=== PATIENT | male | born 1990 | race Caucasian/White ===

== ENCOUNTER 2017-05-17 17:25 | Emergency (ER) | END 2017-05-17 18:54 | disposition home or self-care (01) ==

== ENCOUNTER 2017-07-31 12:49 | Emergency (ER) | END 2017-07-31 15:22 | disposition home or self-care (01) ==

== ENCOUNTER 2017-11-08 12:35 | Emergency (ER) | END 2017-11-08 13:12 | disposition home or self-care (01) ==

== ENCOUNTER 2018-03-05 09:59 | Emergency (ER) | payer OTHER ==
[~2018-03-05] VITALS: Wt 100.2 kg
[~2018-03-05 09:59] MED LIST: ALBU8.5H5 INH; CEPH-443 PO; CYCL10TA7 PO; HYDR-4011 PO; METH750T93 PO; NAPR-688 PO; NAPR-985 PO
[2018-03-05 10:03] VITALS: BP 139/82; PULSE 78; RESP 18
[2018-03-05] MEDS ORDERED: KETOROLAC 30 MG INJ IM STA (10:56)
[2018-03-05] MEDS ORDERED: DEXAMETHASONE 10 MG/ML 1 ML INJ IM ONE (11:00)
[2018-03-05] MEDS ORDERED: METHOCARBAMOL 750 MG TAB PO ONE (11:00)
[2018-03-05] MEDS ORDERED: HYDR-4011 PO (11:53)
[2018-03-05] MEDS ORDERED: CYCL10TA7 PO (11:53)
[2018-03-05] MEDS ORDERED: IBUP-1542 PO (11:53)
--- NOTE | 2018-03-05 11:54 | ERD ---
ER Documentation Chief Complaint Chief Complaint LOWER BACK PAIN X 1 day HPI 27-year-old male presents for low back pain and right shoulder pain times 1 day. He was playing soccer yesterday and landed on his back. He does have history of heavy lifting. He states that he had pain in a couple months ago. pain is 10 out of 10. He took Naprosyn at home without relief. No history of cancer, no history of recent infection, no history of back procedure. Denies fevers. Denies shortness of breath, abdominal pain, chest pain. ROS All systems reviewed and are negative except as per history of present illness. Medications Home Meds Active Scripts Ibuprofen* (Motrin*) 600 Mg Tab, 600 MG PO Q6H PRN for PAIN AND OR ELEVATED TEMP, #30 TAB Prov:SALLIE HONG DO 03/05/18 Cyclobenzaprine Hcl* (Cyclobenzaprine Hcl*) 10 Mg Tablet, 10 MG PO TID, #30 TAB Prov:SALLIE HONG DO 03/05/18 Hydrocodone/Acetaminophen ([place] 5-325 Tablet) 1 Each Tablet, 1 TAB PO Q6H PRN for PAIN, #10 TAB Prov:SALLIE HONG DO 03/05/18 Cyclobenzaprine Hcl* (Cyclobenzaprine Hcl*) 10 Mg Tablet, 10 MG PO TID, #30 TAB Prov:KIMBERLY JANG PA-C 11/08/17 Naproxen* (Naprosyn*) 500 Mg Tablet, 500 MG PO BID PRN for PAIN AND/OR INFLAMMATION, #30 TAB Prov:KIMBERLY JANG PA-C 11/08/17 Naproxen* (Naprosyn*) 500 Mg Tablet, 500 MG PO BID PRN for PAIN AND/OR INFLAMMATION, #30 TAB Prov:OPAL BARRIGA PA-C 07/31/17 Hydrocodone/Acetaminophen ([place] 5-325 Tablet) 1 Each Tablet, 1 TAB PO Q6H PRN for PAIN, #7 TAB Prov:OPAL BARRIGA PA-C 07/31/17 Cyclobenzaprine Hcl* (Cyclobenzaprine Hcl*) 10 Mg Tablet, 10 MG PO TID, #15 TAB Prov:OPAL BARRIGA PA-C 07/31/17 Hydrocodone/Acetaminophen ([place] 5-325 Tablet) 1 Each Tablet, 1 EACH PO QHS for SEVERE PAIN LEVEL 7-10, #10 TAB Prov:RICK BAÑUELOS DO 05/17/17 Methocarbamol* (Robaxin*) 750 Mg Tablet, 750 MG PO Q6H PRN for MUSCLE SPASMS, #20 TAB Prov:RICK BAÑUELOS DO 05/17/17 Naproxen* (Naproxen*) 500 Mg Tablet, 500 MG PO BID PRN for archana, #20 TAB Prov:RIKC BAÑUELOS DO 05/17/17 Cephalexin* (Keflex*) 500 Mg Capsule, 500 MG PO QID, #20 CAP Prov:RUFINA KING 05/08/15 Albuterol Sulfate* (Albuterol Sulfate* HFA) 8.5 Gm Hfa.aer.ad, 2 PUFF INH Q4H PRN for WHEEZING AND SOB, #1 INHALER Prov:ANALI BARBOUR NP 02/07/15 Allergies Allergies: Coded Allergies: No Known Allergies (Unverified Allergy, Unknown, 05/17/17) PMhx/Soc History of Surgery: No Anesthesia Reaction: No Hx Neurological Disorder: No Hx Respiratory Disorders: Yes (ASTHMA) Hx Cardiac Disorders: No Hx Psychiatric Problems: No Hx Miscellaneous Medical Probl: No Hx Alcohol Use: No (occasional) Hx Substance Use: No Hx Tobacco Use: No Physical Exam Vitals Temperature 98, pulse 78, respiration 18, blood pressure 139/82 Physical Exam Const: No acute distress Resp: Clear to auscultation bilaterally Cardio: Regular rate and rhythm, no murmurs, bilateral radial and dorsalis pedis pulses intact Abd: Soft, non tender, non distended. Normal bowel sounds Skin: No petechiae or rashes Back: There is low back paravertebral muscle tenderness to palpation lumbar spine Ext: Right shoulder tenderness noted diffusely, decreased range of motion, muscle strength 5 out of 5 upper and lower extremity Neur: Awake and alert, bilateral upper and lower extremity sensation intact Psych: Normal Mood and Affect Results 24 hrs Current Medications Medications Dose Sig/Agustín Start Time Status Last (Trade) Ordered Route PRN Stop Time Admin Dose Reason Admin Ketorolac 30 mg ONCE STAT 03/05/18 DC 03/05/18 Tromethamine IM 10:56 11:36 (Toradol) 03/05/18 10:57 10 mg ONCE ONCE 03/05/18 DC 03/05/18 Dexamethasone IM 11:00 11:36 (Decadron) 03/05/18 11:01 750 mg ONCE ONCE 03/05/18 DC 03/05/18 Methocarbamol PO 11:00 11:35 (Robaxin) 03/05/18 11:01 Procedures/MDM Medical Decision Making: Differential diagnosis includes but not limited to muscle strain, ligamentous sprain, epidural abscess, osteomyelitis, osteoarthritis, herniated disc, compression fracture, aortic aneurysm, kidney stone, pyelonephritis, pancreatitis. Patient appeared well on physical examination. Nontoxic appearing. Imaging: Lumbar spine x-ray is unremarkable Right shoulder x-ray unremarkable Patient likely has muscle strain ED course: Patient was given Robaxin, Motrin, Decadron. Symptoms improved with treatment. Prescription(s): Patient given prescription for [place], Motrin, muscle relaxer. Patient advised to follow up with PCP in 1-2 days. Patient advised to return to ED for new or worsening symptoms. Patient stable on discharge from the ED. Disclaimer: Inadvertent spelling and grammatical errors are likely due to EHR/dictation software use and do not reflect on the overall quality of patient care. Also, please note that the electronic time recorded on this note does not necessarily reflect the actual time of the patient encounter. Departure Diagnosis: Primary Impression: Injury of back Encounter type: initial encounter Qualified Codes: S39.92XA - Unspecified injury of lower back, initial encounter Condition: Fair Patient Instructions: Back Sprain/Strain Referrals: [facility] YOU HAVE RECEIVED A MEDICAL SCREENING EXAM AND THE RESULTS INDICATE THAT YOU DO NOT HAVE A CONDITION THAT REQUIRES URGENT TREATMENT IN THE EMERGENCY DEPARTMENT. FURTHER EVALUATION AND TREATMENT OF YOUR CONDITION CAN WAIT UNTIL YOU ARE SEEN IN YOUR DOCTORS OFFICE WITHIN THE NEXT 1-2 DAYS. IT IS YOUR RESPONSIBILITY TO MAKE AN APPOINTMENT FOR FOLOW-UP CARE. IF YOU HAVE A PRIMARY DOCTOR --you should call your primary doctor and schedule an appointment IF YOU DO NOT HAVE A PRIMARY DOCTOR YOU CAN CALL OUR PHYSICIAN REFERRAL HOTLINE AT IF YOU CAN NOT AFFORD TO SEE A PHYSICIAN YOU CAN CHOSE FROM THE FOLLOWING [facility] [address] [facility]. [facility] [address] [facility] [facility] [address] [facility] [address] [facility] [address] [facility] [facility] [address] Additional Instructions: Call your primary care doctor TOMORROW for an appointment during the next 1-2 days.See the doctor sooner or return here if your condition worsens before your appointment time. SALLIE HONG DO Mar 05, 2018 11:54
== END 2018-03-05 12:00 | disposition home or self-care (01) ==
LOC: FTE 09:59
DX: S39.92XA Unspecified injury of lower back, initial encounter (principal); J45.909 Unspecified asthma, uncomplicated; X58.XXXA Exposure to other specified factors, initial encounter; Y92.9 Unspecified place or not applicable
CPT/HCPCS: 72100; 73030; 96372; J1100; J1885; Z7502; Z7610

== ENCOUNTER 2018-11-18 12:51 | Emergency (ER) | payer OTHER ==
[~2018-11-18] VITALS: Ht 180.3 cm; Wt 117.8 kg
[~2018-11-18 12:51] MED LIST changes: +IBUP-1542 PO; +ONDA8TAB14 PO
[2018-11-18 13:18] VITALS: Ht 180.3 cm; Wt 117.8 kg
[2018-11-18 15:53] VITALS: BP 138/71; PULSE 77; RESP 16
== END 2018-11-18 15:54 | disposition home or self-care (01) ==
LOC: FTE 12:51
DX: R51 Headache (principal); R11.0 Nausea; J45.909 Unspecified asthma, uncomplicated
CPT/HCPCS: 99283